=== PATIENT | female | born 1940 | race Caucasian/White ===

== ENCOUNTER 2020-05-05 12:38 | Emergency (ER) | payer MEDICARE, OTHER ==
[~2020-05-05 12:38] MED LIST: B-COMPLEX TABL0.4 MG PO; BIOTIN5000 MCG PO; COLACE100 MG PO; FEOSOL325 MG PO; FOLIC ACID1 MG PO; IRON18 MG PO; LIPITOR 10MG TA10 MG PO; LISINOPRIL-HCT1 EAC1 PO; ONDANSETRON ODT4 MG PO/SL; RESTASIS MULTI5.5 ML EYEBOTH; SYNTHROID112 MCG PO; TRAMADOL HCL50 MG PO; VANCOCIN HCL125 MG PO; VANCOMYCIN HCL1 GM PO; VITAMIN D400 UNIT PO; ZANTAC150 MG PO; ZOFRAN4 MG PO
[2020-05-05 15:16] LABS: EOSINOPHIL 1.8 % (0-7); HCT 34.7 % (37.0-47.0); HGB 11.3 g/dl (12.5-16.0); LYMPHOCYTE 20.9 % (15-48); MCH 33.7 pg (25.0-31.0); MCHC 32.6 g/dL (32.0-36.0); MCV 103.6 fL (78.0-100.0); MONOCYTE 10.8 % (0-12); MPV 11.9 fL (6.0-9.5); NEUTROPHIL 65.3 % (41-80); NRBC 0; PLT 264 K/uL (150-400); RBC 3.35 M/uL (4.20-5.40); RDW 12.6 % (11.5-14.0); WBC 6.1 K/uL (4.0-10.5)
[2020-05-05 15:53] LABS: ALBUMIN 3.4 g/dL (3.4-5.0); BILIRUBIN - TOTAL 0.4 mg/dL (0.2-1.0); BUN/CREAT RATIO (CALC) 15.5 RATIO; CREATININE 1.1 mg/dL (0.51-0.95); GLOBULIN (CALCULATION) 3.4 g/dL; POTASSIUM 4.1 mmol/L (3.5-5.1); TOTAL PROTEIN 6.8 g/dL (6.4-8.2)
[2020-05-05 16:01] LABS: PRO-BNP 203 pg/mL (<450)
[2020-05-05 17:43] LABS: BILIRUBIN NEGATIVE (NEGATIVE); BLOOD NEGATIVE Ery/uL (NEGATIVE); CLARITY CLEAR (CLEAR); COLOR YELLOW (YELLOW); GLUCOSE (U) NORMAL (NORMAL); LEUKOCYTES NEGATIVE Leu/uL (NEGATIVE); NITRITE NEGATIVE (NEGATIVE); PROTEIN NEGATIVE (NEGATIVE); UROBILINOGEN 0.2 mg/dL (0.2-1.0)
[2020-05-05 18:34] LABS: AMPHETAMINES NEGATIVE (NEGATIVE); BARBITURATES NEGATIVE (NEGATIVE); ECSTASY (MDMA) NEGATIVE (NEGATIVE); MARIJUANA (THC) NEGATIVE (NEGATIVE); METHADONE NEGATIVE (NEGATIVE); OPIATES NEGATIVE (NEGATIVE); OXYCODONE NEGATIVE (NEGATIVE)
== END 2020-05-05 19:51 | disposition home or self-care (01) ==
LOC: FER 12:38
PROVIDERS: Nurse Practitioner Family
DX: R60.0 Localized edema (principal); I13.10 Hypertensive heart and chronic kidney disease without heart failure, with stage 1 through stage 4 chronic kidney disease, or unspecified chronic kidney disease; E11.22 Type 2 diabetes mellitus with diabetic chronic kidney disease; N18.9 Chronic kidney disease, unspecified; Z88.2 Allergy status to sulfonamides; Z88.8 Allergy status to other drugs, medicaments and biological substances; Z87.891 Personal history of nicotine dependence; Z79.899 Other long term (current) drug therapy; R06.02 Shortness of breath; E03.9 Hypothyroidism, unspecified; K21.9 Gastro-esophageal reflux disease without esophagitis; G47.00 Insomnia, unspecified
CPT/HCPCS: 36415; 71046; 80053; 80305; 81003; 83880; 84484; 85025; 93005; J1940

== ENCOUNTER 2020-08-01 11:15 | Emergency (ER) | payer MEDICARE, OTHER ==
[2020-08-01] MEDS ORDERED: PROTONIX 40MG T40 MG PO (15:05)
== END 2020-08-01 15:30 | disposition home or self-care (01) ==
LOC: FER 11:15
DX: K21.9 Gastro-esophageal reflux disease without esophagitis (principal); I10 Essential (primary) hypertension; Z88.2 Allergy status to sulfonamides
CPT/HCPCS: 99283